=== PATIENT | male | born 1980 ===

== ENCOUNTER 2020-10-26 01:08 | Emergency (ER) | payer OTHER ==
[2020-10-26] MEDS ORDERED: ALPRAZolam 0.25 MG Tab PO ONE (02:01)
--- NOTE | 2020-10-26 02:06 | EDM.PDOCBH ---
ED HPI GENERAL MEDICAL PROBLEM - General Chief Complaint: Behavioral/Psych Stated Complaint: ANXIETY ATTACK Time Seen by Provider: 10/26/20 01:30 Source of Information: Reports: Patient History Limitations: Reports: No Limitations - History of Present Illness INITIAL COMMENTS - FREE TEXT/NARRATIVE: patient here with his girlfriend due to anxiety. Reports it has been on/off since yesterday. He is here visiting for fishing, and reports not drinking enough fluids today. h/o anxiety in the past - not on meds. no CP or SOB,, no palpitations. he smokes cigarettes but denies smoking marijuana. Reports drinking too much alcohol the last 2 days valente rosalie benji eduardo. - Related Data Allergies Allergy/AdvReac Type Severity Reaction Status Date / Time No Known Allergies Allergy Verified 10/26/20 01:34 Home Meds: Home Meds NK [No Known Home Meds] 10/26/20 [History] Past Medical History Psychiatric History: Reports: Anxiety Social & Family History - Tobacco Use Years of Tobacco use: 25 Packs/Tins Daily: 1.5 - Caffeine Use Caffeine Use: Reports: Coffee, Soda - Recreational Drug Use Recreational Drug Use: No ED ROS GENERAL - Review of Systems Review Of Systems: See Below Constitutional: Reports: No Symptoms HEENT: Reports: No Symptoms Respiratory: Reports: No Symptoms Cardiovascular: Reports: No Symptoms GI/Abdominal: Reports: No Symptoms Musculoskeletal: Reports: No Symptoms Skin: Reports: No Symptoms Psychiatric: Reports: Anxiety ED EXAM, BEHAVIORAL HEALTH - Physical Exam Exam: See Below Exam Limited By: No Limitations General Appearance: Alert, WD/WN, No Apparent Distress Eye Exam: Bilateral Eye: EOMI, PERRL Throat/Mouth: Normal Inspection Head: Atraumatic Respiratory/Chest: No Respiratory Distress, Lungs Clear Cardiovascular: Normal Peripheral Pulses, Regular Rate, Rhythm GI/Abdominal: Normal Bowel Sounds, Soft, Non-Tender Extremities: Normal Inspection, Normal Range of Motion Neurological: Alert, Normal Mood/Affect, Normal Cognition, No Motor/Sensory Deficits, Oriented x 3 COURSE, BEHAVIORAL HEALTH COMP - Course Vital Signs: Last Vital Signs Temp 36.6 C 10/26/20 01:21 Pulse 78 10/26/20 01:21 Resp 20 10/26/20 01:21 BP 146/93 H 10/26/20 01:21 Pulse Ox 99 10/26/20 01:21 Orders, Labs, Meds: Medications Discontinued Medications Generic Name Dose Route Start Last Admin Trade Name Ania PRN Reason Stop Dose Admin Alprazolam 0.5 mg 10/26/20 02:01 10/26/20 02:05 Alprazolam 0.25 Mg Tab PO 10/26/20 02:02 0.5 mg ONETIME ONE Administration Medical Clearance: was given xanax 0.5mg PO for anxiety also had around 2-3 bottles of water in the ER. vitals WNL discussed with patient the importance of drinking enough liquids/water - around 3 liters a day Discharge vs Psych Eval/Treatment:: PO fluids was encouraged - was able to drink multiple bottles of water in the ER Xanax was given in the ER - reports feeling better Departure - Departure Time of Disposition: 03:30 Disposition: Home, Self-Care 01 Clinical Impression: Anxiety - Discharge Information *PRESCRIPTION DRUG MONITORING PROGRAM REVIEWED*: Not Applicable *COPY OF PRESCRIPTION DRUG MONITORING REPORT IN PATIENT DENNIS: Not Applicable Instructions: Managing Anxiety, Adult Forms: ED Department Discharge Additional Instructions: - increase fluids and water intake - at least 3 liters a day - follow up with your PCP in 3-7 days Sepsis Event Note (ED) - Evaluation Sepsis Screening Result: No Definite Risk - Focused Exam Vital Signs: Vital Signs Temp Pulse Resp BP Pulse Ox 10/26/20 01:21 36.6 C 78 20 146/93 H 99 - Problem List & Annotations (1) Anxiety SNOMED Code(s): 28259645 Code(s): F41.9 - ANXIETY DISORDER, UNSPECIFIED Status: Acute Priority: Low - Problem List Review Problem List Initiated/Reviewed/Updated: Yes - Assessment/Plan Plan: - increase fluids and water intake - at least 3 liters a day - follow up with your PCP in 3-7 days
== END 2020-10-26 02:22 | disposition home or self-care (01) ==
LOC: LB.ED 01:08
DX: F41.9 Anxiety disorder, unspecified (principal); Z72.0 Tobacco use
CPT/HCPCS: 99283; A9270-GY